=== PATIENT | male | born 1985 | race Caucasian/White ===

== ENCOUNTER 2017-06-30 17:00 | Emergency (ER) | payer MEDICAID, OTHER ==
[~2017-06-30] VITALS: Ht 172.7 cm; Wt 88.0 kg
[2017-06-30 17:05] VITALS: BP 115/70
[2017-06-30] MEDS ORDERED: KETOROLAC 30 MG/1 ML ONE (17:36)
[2017-06-30] MEDS ORDERED: PLEASE ENTER ALLERGIES MC SCH (18:00)
[2017-06-30] MEDS ORDERED: KETOROLAC 30 MG/1 ML IM ONE (18:00)
== END 2017-06-30 18:12 | disposition home or self-care (01) ==
LOC: ED 18:10
DX: S43.402A Unspecified sprain of left shoulder joint, initial encounter (principal); V89.2XXA Person injured in unspecified motor-vehicle accident, traffic, initial encounter; Y93.89 Activity, other specified; Y92.89 Other specified places as the place of occurrence of the external cause; Y99.8 Other external cause status
CPT/HCPCS: 73030; 96372; 99284; J1885

== ENCOUNTER 2017-10-17 14:49 | Emergency (ER) | payer MEDICAID ==
[~2017-10-17] VITALS: Ht 152.4 cm; Wt 79.2 kg
[2017-10-17 15:05] VITALS: BP 137/93
[2017-10-17] MEDS ORDERED: KETOROLAC 30 MG/1 ML ONE (16:07)
[2017-10-17] MEDS ORDERED: KETOROLAC 30 MG/1 ML IM ONE (16:30)
== END 2017-10-17 16:31 | disposition home or self-care (01) ==
LOC: ED 16:25
DX: M25.512 Pain in left shoulder (principal); G89.29 Other chronic pain; G89.11 Acute pain due to trauma
CPT/HCPCS: 73030; 96372; 99284; J1885

== ENCOUNTER 2019-11-26 20:53 | Emergency (ER) | payer MEDICAID ==
[~2019-11-26] VITALS: Ht 170.2 cm; Wt 93.4 kg
[2019-11-26 20:55] VITALS: BP 146/81
== END 2019-11-26 22:26 | disposition home or self-care (01) ==
LOC: ED 22:04
DX: M77.9 Enthesopathy, unspecified (principal); G56.22 Lesion of ulnar nerve, left upper limb; Z87.891 Personal history of nicotine dependence
CPT/HCPCS: 99282